=== PATIENT | male | born 1955 | race American Indian/Alaskan Native ===

== ENCOUNTER 2019-12-08 20:26 | Observation (INO) | payer MEDICARE ==
--- NOTE | 2019-12-08 20:37 | Emergency Department Report ---
Blank Doc - Documentation Documentation: 64-year-old male that presents with chest pain and SOB. This initial assessment/diagnostic orders/clinical plan/treatment(s) is/are subject to change based on patient's health status, clinical progression and re- assessment by fellow clinical providers in the ED. Further treatment and workup at subsequent clinical providers discretion. Patient/guardians urged not to elope from the ED as their condition may be serious if not clinically assessed and managed. Initial orders include: 1- Patient sent to MAIN ED for further evaluation and treatment 2- cardiac workup
[2019-12-08 21:21] LABS: Basophils % (Auto) 0.7 % (0.0-1.8); Eosinophils # (Auto) 0.1 K/mm3 (0.0-0.4); Eosinophils % (Auto) 0.8 % (0.0-4.3); Hematocrit 36.4 % (35.5-45.6); Hemoglobin 12.6 gm/dl (11.8-15.2); Lymphocytes # (Auto) 2.1 K/mm3 (1.2-5.4); Lymphocytes % (Auto) 31.3 % (13.4-35.0); Mean Corpuscular HGB Conc 35 % (32-34); Mean Corpuscular Volume 95 fl (84-94); Monocytes # (Auto) 0.5 K/mm3 (0.0-0.8); Monocytes % (Auto) 6.8 % (0.0-7.3); Platelet Count 318 K/mm3 (140-440); Red Blood Count 3.83 M/mm3 (3.65-5.03); Red Cell Distribution Width 13.9 % (13.2-15.2)
--- NOTE | 2019-12-08 21:22 | XRay Report ---
CHEST 2 VIEWS 1913 INDICATION / CLINICAL INFORMATION: Chest Pain COMPARISON: None available. FINDINGS: SUPPORT DEVICES: None. HEART / MEDIASTINUM: No significant abnormality. LUNGS / PLEURA: Mild hyperinflation is seen. No focal infiltrates are noted. Apparent scarring is see n in the right base. No pleural effusions are noted. No pneumothorax. ADDITIONAL FINDINGS: No significant additional findings. IMPRESSION: No significant acute abnormality Signer Name: Dave Virk MD Signed: 12/08/2019 9:17 PM Workstation Name: [id number]
[2019-12-08 21:31] LABS: INR 0.94 (0.87-1.13)
[2019-12-08 21:32] LABS: Partial Thromboplastin Time 26.9 Sec. (24.2-36.6)
[2019-12-08 21:37] LABS: Alanine Aminotransferase 13 units/L (7-56); Albumin 4.3 g/dL (3.9-5); Blood Urea Nitrogen 12 mg/dL (9-20); Calcium 9.1 mg/dL (8.4-10.2); Hemolysis Index 7
[2019-12-08 21:42] LABS: BUN/Creatinine Ratio 20
[2019-12-08 21:45] LABS: Bilirubin,Urine NEG (Negative); Blood,Urine NEG (Negative); Color,Urine Colorless (Yellow); Protein,Urine <15 mg/dL mg/dL (Negative); Urobilinogen,Urine < 2.0 mg/dL (<2.0)
[2019-12-09] MEDS ORDERED: MORPHINE 4 MG/1 ML INJ IV ONE (01:17)
[2019-12-09] MEDS ORDERED: SODIUM CHLORIDE 0.9% 1000 ML 1,000 ML IV ONE (01:17)
[2019-12-09] MEDS ORDERED: levETIRAcetam 1000 MG/NS 0.75% 1,000 MG/100 ML BAG IV ONE (01:17)
--- NOTE | 2019-12-09 01:20 | Emergency Department Report ---
ED Chest Pain HPI - General Chief Complaint: Chest Pain Stated Complaint: CHEST PAIN/SEIZURE Time Seen by Provider: 12/08/19 20:36 Source: patient Mode of arrival: Ambulatory Limitations: No Limitations - History of Present Illness Initial Comments: This is a 64-year-old -[place] male who presents to the emergency department from home with complaint of a 2-day history of intermittent sharp left-sided chest pains, shortness of breath, and a seizure. The patient says that he does have a seizure disorder for which he takes Keppra 500 mg twice daily and has been compliant with this, and all of his medications. He also has a history of hypertension and hyperlipidemia. The patient is a tobacco smoker but denies any illicit drug use. Currently the pain is 8 out of 10 in intensity. No known aggravating or alleviating factors. He denies any fever, cough, back pain, nausea, vomiting or diaphoresis. The patient just recently moved here from [place] about 3 weeks ago and therefore does not have a local primary care physician. Severity scale (0 -10): 3 - Related Data Home Medications Medication Instructions Recorded Confirmed Last Taken AtorvaSTATin [Lipitor] 40 mg PO QHS 12/09/19 12/09/19 Unknown Naproxen 375 mg PO TID 12/09/19 12/09/19 Unknown amLODIPine [Norvasc] 10 mg PO DAILY 12/09/19 12/09/19 Unknown levETIRAcetam [Keppra TAB] 500 mg PO BID 12/09/19 12/09/19 Unknown Allergies Allergy/AdvReac Type Severity Reaction Status Date / Time No Known Allergies Allergy Unverified 12/08/19 21:10 Heart Score - HEART Score History: Slightly suspicious EKG: Normal Age: 45-65 Risk factors: > 3 risk factors or hx of atherosclerotic disease Troponin: < normal limit HEART Score: 3 - Critical Actions Critical Actions: 0-3 pts:0.9-1.7%risk of adverse cardiac event.Candidate for discharge ED Review of Systems ROS: Stated complaint: CHEST PAIN/SEIZURE Other details as noted in HPI Comment: All other systems reviewed and negative Constitutional: denies: chills, fever Eyes: denies: eye pain, vision change ENT: denies: ear pain, throat pain Respiratory: shortness of breath. denies: cough Cardiovascular: chest pain. denies: palpitations Gastrointestinal: denies: abdominal pain, vomiting Genitourinary: denies: dysuria, discharge Musculoskeletal: denies: back pain, arthralgia Skin: denies: rash, lesions Neurological: denies: headache, weakness ED Past Medical Hx - Past Medical History Previous Medical History?: Yes Hx Hypertension: Yes Hx Seizures: Yes Additional medical history: Chronic Pain. High Cholesterol - Surgical History Past Surgical History?: Yes Additional Surgical History: Right hip. Right knee - Social History Smoking Status: Current Every Day Smoker Substance Use Type: None - Medications Home Medications: Home Medications Medication Instructions Recorded Confirmed Last Taken Type AtorvaSTATin [Lipitor] 40 mg PO QHS 12/09/19 12/09/19 Unknown History Naproxen 375 mg PO TID 12/09/19 12/09/19 Unknown History amLODIPine [Norvasc] 10 mg PO DAILY 12/09/19 12/09/19 Unknown History levETIRAcetam [Keppra TAB] 500 mg PO BID 12/09/19 12/09/19 Unknown History ED Physical Exam - General Limitations: No Limitations - Other Other exam information: GENERAL: The patient is well-developed well-nourished. HENT: Normocephalic. Atraumatic. Patient has moist mucous membranes. EYES: Extraocular motions are intact. NECK: Supple. Trachea is midline. CHEST/LUNGS: Clear to auscultation. There is no respiratory distress noted. Chest pain is not reproducible to palpation of the chest wall. HEART/CARDIOVASCULAR: Regular. There is no tachycardia. There is no murmur. ABDOMEN: Abdomen is soft, nontender. Patient has normal bowel sounds. There is no abdominal distention. SKIN: Skin is warm and dry. NEURO: The patient is awake, alert, and oriented. The patient is cooperative. The patient has no focal neurologic deficits. Normal speech. MUSCULOSKELETAL: There is no tenderness or deformity. There is no limitation range of motion. ED Course Vital Signs 12/08/19 12/09/19 12/09/19 20:38 01:54 02:01 Temperature 97.4 F L Pulse Rate 84 63 Respiratory 20 16 13 Rate Blood Pressure 123/80 128/79 O2 Sat by Pulse 95 90 Oximetry HATTIE score - Hattie Score Age > 65: (0) No Aspirin use within the Past 7 Days: (0) No 3 or more CAD Risk Factors: (1) Yes 2 or more Angina events in past 24 hrs: (1) Yes Known CAD with more than 50% Stenosis: (0) No Elevated Cardiac Markers: (0) No ST Deviation Greater than 0.5mm: (0) No HATTIE Score: 2 ED Medical Decision Making - Lab Data Result diagrams: 12/08/19 21:00 12/08/19 21:00 - EKG Data -: EKG Interpreted by Me EKG shows normal: sinus rhythm, axis, intervals, QRS complexes (LVH), ST-T waves Rate: normal - EKG Data When compared to previous EKG there are: previous EKG unavailable Interpretation: LVH - Radiology Data Radiology results: image reviewed interpreted by me: Chest x-ray does not show any acute process. There are no pleural effusions, obvious pneumonia and there is no pneumothorax. No significant cardiomegaly. - Medical Decision Making This patient presents with a 2-day history of some left-sided chest pain. There is also questionable seizure-like activity that occurred earlier this evening. The patient does have a seizure history for which she is on Keppra. He has been given a loading dose of Keppra here as well. On examination there are no focal, motor or sensory deficits and his cranial nerves are intact. Heart and lung sounds are normal to auscultation. Chest pain is not reproducible to palpation of the chest wall. An EKG was done that does not show any morphology consistent with ST elevation myocardial infarction. Labs have thus far been unremarkable including CBC, metabolic panel, and negative troponins x2. The patient continues to have intermittent intense left-sided chest pains. He has a moder ate heart score of 3. For these reasons the patient will be admitted to the hospital for further evaluation and treatment and was accepted for admission by the hospitalist, Dr. Morocho. Critical Care Time: No Critical care attestation.: If time is entered above; I have spent that time in minutes in the direct care of this critically ill patient, excluding procedure time. ED Disposition Clinical Impression: Acute chest pain, Seizure Disposition: OP ADMIT IP TO THIS HOSP Is pt being admited?: Yes Condition: Fair Time of Disposition: 02:40
[2019-12-09] MEDS ORDERED: MORPHINE 2 MG/1 ML INJ IV PRN (03:37)
[2019-12-09] MEDS ORDERED: ACETAMINOPHEN 325 MG TAB PO PRN (03:38)
[2019-12-09] MEDS ORDERED: ONDANSETRON 4 MG/2 ML INJ IV PRN (03:39)
[2019-12-09] MEDS ORDERED: NITROGLYCERIN 0.4 MG TAB SUBL SL PRN (03:44)
[2019-12-09] MEDS: HEPARIN 5,000 UNIT/1 ML VIAL SUB-Q SCH ×2 (03:45→11:42)
--- NOTE | 2019-12-09 03:58 | History and Physical Report ---
History of Present Illness Date of examination: 12/09/19 Date of admission: 12/09/19 02:40 Chief complaint: Chest pain History of present illness: 64 year old male presenting with 2 day history of precordial sharp chest pain radiating to the left arm and associated with shortness of breath. There is no history of fever, chills, nausea or vomiting, cough or body aches. Past History Past Medical History: hypertension, hyperlipidemia, seizures Past Surgical History: Other (RIGHT HIP SURGERY , RIGHT AMBER SURGERY) Social history: no significant social history Family history: no significant family history Medications and Allergies Allergies Allergy/AdvReac Type Severity Reaction Status Date / Time No Known Allergies Allergy Unverified 12/08/19 21:10 Home Medications Medication Instructions Recorded Confirmed Last Taken Type AtorvaSTATin [Lipitor] 40 mg PO QHS 12/09/19 12/09/19 Unknown History Naproxen 375 mg PO TID 12/09/19 12/09/19 Unknown History amLODIPine [Norvasc] 10 mg PO DAILY 12/09/19 12/09/19 Unknown History levETIRAcetam [Keppra TAB] 500 mg PO BID 12/09/19 12/09/19 Unknown History Active Meds: Active Medications Acetaminophen (Tylenol) 650 mg PO Q4H PRN PRN Reason: Headache Aspirin (Aspirin) 325 mg PO QDAY [facility] Heparin Sodium (Porcine) (Heparin) 5,000 unit SUB-Q Q12HR [facility] Morphine Sulfate (Morphine) 2 mg IV Q3H PRN PRN Reason: Pain, Moderate (4-6) Nitroglycerin (Nitro-Bid 2%) 0.5 inch TP QIDNTG [facility]; Protocol Nitroglycerin (Nitrostat) 0.4 mg SL .Q5MIN PRN PRN Reason: Chest Pain Ondansetron HCl (Zofran) 4 mg IV Q8H PRN PRN Reason: Nausea And Vomiting Review of Systems Constitutional: weakness, no fever, no chills, no sweats, no night sweats Eyes: bilateral: other (NO BILATERAL EYE SYMPTOMS) Cardiovascular: chest pain, no orthopnea, no palpitations, no rapid/irregular heart beat, no edema, no syncope, no lightheadedness Respiratory: shortness of breath, no cough, no cough with sputum, no excessive sputum, no hemoptysis, no dyspnea on exertion, no congestion, no wheezing, no pleurisy Gastrointestinal: no abdominal pain, no nausea, no vomiting, no diarrhea, no constipation, no change in bowel habits, no hematemesis, no hematochezia, no los s of appetite, no early satiety, no heartburn Genitourinary Male: no dysuria, no hematuria, no flank pain, no discharge, no urinary frequency, no urinary hesitancy, no nocturia, no incontinence, no erectile dysfunction, no genital pain Rectal: no pain Musculoskeletal: no neck stiffness, no neck pain Integumentary: no rash, no pruritis, no redness, no sores, no wounds, no jaundice Neurological: weakness, no parathesias, no numbness, no tingling, no seizures, no syncope, no tremors, no vertigo, no headaches Psychiatric: no anxiety, no memory loss, no insomnia, no change in libido, no suicidal ideation Endocrine: no polydipsia, no polyuria, no nocturia Hematologic/Lymphatic: no easy bruising, no easy bleeding, no lymphadenopathy Exam - Constitutional Vitals: Temp Pulse Resp BP Pulse Ox 97.4 F L 58 L 14 128/74 92 12/08/19 20:38 12/09/19 03:00 12/09/19 03:00 12/09/19 03:00 12/09/19 03:00 General appearance: Present: no acute distress - EENT Eyes: Present: PERRL, EOM intact ENT: hearing intact, clear oral mucosa - Neck Neck: Present: supple, normal ROM - Respiratory Respiratory effort: normal - Cardiovascular Rhythm: regular Heart Sounds: Present: S1 & S2. Absent: gallop, systolic murmur, diastolic murmur, rub, click - Extremities Extremities: No edema Peripheral Pulses: within normal limits - Abdominal General gastrointestinal: Present: soft, non-tender, non-distended. Absent: tender, distended, rigid Male genitourinary: Present: deferred - Rectal Rectal Exam: deferred - Integumentary Integumentary: Present: clear, warm, dry. Absent: erythema - Musculoskeletal Musculoskeletal: strength equal bilaterally - Psychiatric Psychiatric: appropriate mood/affect - Neurologic Neurologic: CNII-XII intact HEART Score - HEART Score EKG: Normal Age: 45-65 Risk factors: > 3 risk factors or hx of atherosclerotic disease Troponin: Troponin T < 0.010 ng/mL (0.00-0.029) 12/08/19 23:40 Troponin: < normal limit - Critical Actions Critical Actions: 0-3 pts:0.9-1.7%risk of adverse cardiac event.Candidate for discharge Results - Labs CBC & Chem 7: 12/08/19 21:00 12/08/19 21:00 Labs: Laboratory Last Values WBC 6.7 K/mm3 (4.5-11.0) 12/08/19 21:00 RBC 3.83 M/mm3 (3.65-5.03) 12/08/19 21:00 Hgb 12.6 gm/dl (11.8-15.2) 12/08/19 21:00 Hct 36.4 % (35.5-45.6) 12/08/19 21:00 MCV 95 fl (84-94) H 12/08/19 21:00 MCH 33 pg (28-32) H 12/08/19 21:00 MCHC 35 % (32-34) H 12/08/19 21:00 RDW 13.9 % (13.2-15.2) 12/08/19 21:00 Plt Count 318 K/mm3 (140-440) 12/08/19 21:00 Lymph % (Auto) 31.3 % (13.4-35.0) 12/08/19 21:00 [place] % (Auto) 6.8 % (0.0-7.3) 12/08/19 21:00 Eos % (Auto) 0.8 % (0.0-4.3) 12/08/19 21:00 Baso % (Auto) 0.7 % (0.0-1.8) 12/08/19 21:00 Lymph # (Auto) 2.1 K/mm3 (1.2-5.4) 12/08/19 21:00 [place] # (Auto) 0.5 K/mm3 (0.0-0.8) 12/08/19 21:00 Eos # (Auto) 0.1 K/mm3 (0.0-0.4) 12/08/19 21:00 Baso # (Auto) 0.0 K/mm3 (0.0-0.1) 12/08/19 21:00 Seg Neutrophils % 60.4 % (40.0-70.0) 12/08/19 21:00 Seg Neutrophils # 4.0 K/mm3 (1.8-7.7) 12/08/19 21:00 PT 12.8 Sec. (12.2-14.9) 12/08/19 21:00 INR 0.94 (0.87-1.13) 12/08/19 21:00 APTT 26.9 Sec. (24.2-36.6) 12/08/19 21:00 Sodium 140 mmol/L (137-145) 12/08/19 21:00 Potassium 4.0 mmol/L (3.6-5.0) 12/08/19 21:00 Chloride 102.6 mmol/L (98-107) 12/08/19 21:00 Carbon Dioxide 19 mmol/L (22-30) L 12/08/19 21:00 Anion Gap 22 mmol/L 12/08/19 21:00 BUN 12 mg/dL (9-20) 12/08/19 21:00 Creatinine 0.6 mg/dL (0.8-1.3) L 12/08/19 21:00 Estimated GFR > 60 ml/min 12/08/19 21:00 BUN/Creatinine Ratio 20 % 12/08/19 21:00 Glucose 72 mg/dL (75-100) L 12/08/19 21:00 Calcium 9.1 mg/dL (8.4-10.2) 12/08/19 21:00 Total Bilirubin 0.20 mg/dL (0.1-1.2) 12/08/19 21:00 AST 22 units/L (5-40) 12/08/19 21:00 ALT 13 units/L (7-56) 12/08/19 21:00 Alkaline Phosphatase 81 units/L (35-129) 12/08/19 21:00 Troponin T < 0.010 ng/mL (0.00-0.029) 12/08/19 23:40 Total Protein 6.9 g/dL (6.3-8.2) 12/08/19 21:00 Albumin 4.3 g/dL (3.9-5) 12/08/19 21:00 Albumin/Globulin Ratio 1.7 % 12/08/19 21:00 Urine Color Colorless (Yellow) 12/08/19 21:09 Urine Turbidity Clear (Clear) 12/08/19 21:09 Urine pH 5.0 (5.0-7.0) 12/08/19 21:09 Ur Specific [place] 1.003 (1.003-1.030) 12/08/19 21:09 Urine Protein <15 mg/dl mg/dL (Negative) 12/08/19 21:09 Urine Glucose (UA) Neg mg/dL (Negative) 12/08/19 21:09 Urine Ketones Neg mg/dL (Negative) 12/08/19 21:09 Urine Blood Neg (Negative) 12/08/19 21:09 Urine Nitrite Neg (Negative) 12/08/19 21:09 Urine Bilirubin Neg (Negative) 12/08/19 21:09 Urine Urobilinogen < 2.0 mg/dL (<2.0) 12/08/19 21:09 Ur Leukocyte Esterase Neg (Negative) 12/08/19 21:09 Urine WBC (Auto) 1.0 /HPF (0.0-6.0) 12/08/19 21:09 Urine RBC (Auto) 1.0 /HPF (0.0-6.0) 12/08/19 21:09 [place]/IV: IV Catheter Type [Right INT / Saline Lock Forearm] Assessment and Plan - Patient Problems (1) Acute chest pain Current Visit: Yes Status: Acute Plan to address problem: 1. TELEMETRY OBSERVATION 2. SERIAL CARDIAC ENZYME 3. ASPIRIN PO 4. TYLENOL PO 5. NITROGLYCERIN 6. MORPHINE I.V FOR PAIN 7. LEXISCAN STRESS TEST 8. NPO 9. OXYGEN PO
[2019-12-09] MEDS: NITROGLYCERIN 2% OINT 1 GM TP SCH ×2 (06:09→11:42)
[2019-12-09] MEDS ORDERED: REGADENOSON 0.4 MG/5 ML INJ IV SCH (08:35)
[2019-12-09] MEDS ORDERED: REGADENOSON 0.4 MG/5 ML INJ IV ONE (08:44)
[2019-12-09] MEDS ORDERED: ASPIRIN 325 MG TAB PO SCH (10:00)
[2019-12-09 11:42] VITALS: BP 127/80
--- NOTE | 2019-12-09 11:47 | Discharge Summary ---
Providers - Providers Date of Admission: 12/09/19 02:40 Date of discharge: 12/09/19 Attending physician: FLORA SO [facility] Condition: Fair Disposition: DC-01 TO HOME OR SELFCARE Time spent for discharge: 34 minutes Core Measure Documentation - Palliative Care Palliative Care/ Comfort Measures: Not Applicable - Core Measures Any of the following diagnoses?: none Exam - Constitutional Vitals: Temp Pulse Resp BP Pulse Ox 97.8 F 77 18 127/80 94 12/09/19 11:39 12/09/19 11:39 12/09/19 11:39 12/09/19 11:39 12/09/19 11:39 Plan Activity: advance as tolerated Weight Bearing Status: Non-Weight Bearing Diet: low fat, low salt Follow up with: GENO MISHRAGRAFTON MD MOIZ [Primary Care Provider] - 3-5 Days Prescriptions: Pantoprazole [Protonix] 40 mg PO QDAY #30 tablet
[2019-12-09 12:14] LABS: Creatine Kinase MB 4.5 ng/mL (0.0-4.0)
--- NOTE | 2019-12-09 16:55 | Treadmill Report ---
NUCLEAR PERFUSION SCAN REFERRING PHYSICIAN: Dr. Rojelio Morocho. PROTOCOL: The patient underwent stress lab in a postoperative state, given 10 mCi of technetium 99m at rest. The patient underwent rest imaging. The patient underwent Lexiscan stress test per standard protocol. At peak stress, the patient was given 26 mCi of technetium 99m. Shortly thereafter, the patient underwent stress imaging. Raw imaging reveals mild GI artifact, no significant motion artifact. SPECT images examined carefully in horizontal long axis, vertical long axis, short axis views. There is normal mitral uptake of radioisotope in all reported segments. No evidence of a significant fixed or reversible perfusion defects suggestive of prior infarction or ischemia. Gated wall motion reveals normal systolic thickening with a calculated ejection fraction of 67%, no TID. Technically difficult study, but probably normal. CONCLUSIONS: 1. Technically difficult study due to GI artifact, but grossly probably normal without evidence of significant degree of ischemia or prior infarction. 2. Normal left ventricular systolic performance without evidence of transient ischemic dilatation or stress-induced segmental wall motion abnormalities. JOB# [id number]
[2019-12-09] MEDS ORDERED: levETIRAcetam 500 MG TAB PO SCH (22:00)
[2019-12-10] MEDS ORDERED: amLODIPine 10 MG TAB PO SCH (10:00)
== END 2019-12-09 14:52 | disposition home or self-care (01) ==
LOC: ED 20:26 → 4A 12-09 02:40
PROVIDERS: ADMIT Internal Medicine; ATTEND Internal Medicine
DX: R07.89 Other chest pain (principal); I10 Essential (primary) hypertension; R56.9 Unspecified convulsions; E78.5 Hyperlipidemia, unspecified; E78.00 Pure hypercholesterolemia, unspecified; Z98.890 Other specified postprocedural states; Z79.82 Long term (current) use of aspirin; Z68.1 Body mass index [BMI] 19.9 or less, adult
CPT/HCPCS: 36415; 71046; 78452; 80053; 81001; 82550; 82553; 84484; 85025; 85610; 85730; 93005; 93017; 94760; 96365; 96372; 96375; 99285; A9502; G0378; J1644; J1953; J2270; J2785; J7030